=== PATIENT | female | born 1980 | race Caucasian/White ===

== ENCOUNTER 2022-08-11 11:23 | Emergency (ER) | payer BC ==
[2022-08-11] MEDS ORDERED: Ibuprofen 600 MG Tab PO ONE (12:01)
== END 2022-08-11 13:08 | disposition home or self-care (01) ==
LOC: MW.ED 11:23
DX: M79.671 Pain in right foot (principal); Z88.1 Allergy status to other antibiotic agents; Z88.0 Allergy status to penicillin
CPT/HCPCS: 73630; 99283; A9270

== ENCOUNTER 2024-05-27 19:45 | Emergency (ER) | payer BC ==
[2024-05-27] MEDS: Dexamethasone 4 MG Tab PO ONE (23:29)
[2024-05-27] MEDS: Clindamycin HCl 150 MG Cap PO ONE (23:30)
[2024-05-27] MEDS: Ibuprofen 600 MG Tab PO ONE (23:30)
== END 2024-05-27 23:32 | disposition home or self-care (01) ==
LOC: MW.ED 19:45
DX: J02.9 Acute pharyngitis, unspecified (principal); K02.9 Dental caries, unspecified; Z88.0 Allergy status to penicillin; Z88.8 Allergy status to other drugs, medicaments and biological substances
CPT/HCPCS: 87428; 87651; 99283; A9270; J8540